=== PATIENT | female | born 1990 | race Caucasian/White ===

== ENCOUNTER 2024-06-03 09:39 | Outpatient (CLI) | payer OTHER, SELFPAY ==
[2024-06-03 10:06] LABS: Basophils % 0.6 % (0.1-2.0); Eosinophils # 0.1 K/mm3 (0.0-0.4); Eosinophils % 1.8 % (0.1-12.0); Hematocrit 41.1 % (37.0-47.0); Hemoglobin 13.1 g/dL (12.2-16.2); Lymphocytes # 1.8 K/mm3 (0.7-4.5); Lymphocytes % 24.1 % (10-50); Mean Corpuscular HGB Conc 31.9 g/dL (31.8-35.4); Mean Corpuscular Hemoglobin 31.4 pg (27.0-31.2); Mean Corpuscular Volume 98.3 fl (81-99); Mean Platelet Volume 8.2 fl (7.4-10.4); Monocytes # 0.4 K/mm3 (0.1-1.0); Monocytes % 5.2 % (1.7-9.3); Neutrophils # 5.2 K/mm3 (1.8-7.8); Neutrophils % 68.3 % (37.0-80.0); Platelet Count 321 K/mm3 (142-424); Red Blood Count 4.18 M/mm3 (4.20-5.40); Red Cell Distribution Width 13.4 % (11.5-17.5); White Blood Count 7.6 K/mm3 (4.8-10.8)
[2024-06-03 11:58] LABS: HCG,Quantitative 138860 mIU/ml (0-5.42)
[2024-06-04 09:21] LABS: HCV Ab Non Reactive (Non Reactive); Hepatitis B Surface Antigen Negative (Negative)
[2024-06-04 12:52] LABS: HIV (1&2) Antibody Rapid NONREACTIVE (NONREACTIVE)
[2024-06-04 13:08] LABS: Progesterone 15.8 ng/mL (.); Rubella Antibodies, IgG 1.33 index (Immune >0.99)
[2024-06-04 14:13] LABS: Rapid Plasma Reagin Ab Titer Non Reactive titer (NonRea<1:1)
== END 2024-06-03 23:59 | disposition home or self-care (01) ==
LOC: LAB 10:23
PROVIDERS: Visit Provider Obstetrics & Gynecology
DX: Z34.90 Encounter for supervision of normal pregnancy, unspecified, unspecified trimester (principal)
CPT/HCPCS: 86803; 86703; 36415; 84144; 84702; 85025; 86593; 86762; 86850; 86870; 87086; 87340

== ENCOUNTER 2024-06-12 10:05 | Outpatient (CLI) | payer OTHER, SELFPAY ==
--- NOTE | 2024-06-12 10:05 | US_ITS ---
PROCEDURE: US OB <= 14 WEEKS FETUS CLINICAL INDICATION: bleeding in early COMPARISON: No exams were available for comparison FINDINGS: Transvaginal sonographic images of the pelvis were obtained. From her last menstrual period she is 14weeks 6days. An intrauterine gestational sac is present with a pole with a crown-rump length of 3.2cm This correlates to a gestational age of 10weeks 1day. MAMTA will be 01/07/2025 heart tones are present with an FHR of 165bpm. Yolk sac is noted. The yolk sac measures 5.6 mmmm. THERE IS AN IUD WITHIN THE LOWER UTERINE SEGMENT. The right ovary is seen and appears normal. There are multiple small follicles within the right ovary. The left ovary is seen and appears normal. There appears to be a corpus luteum in the left ovary measuring 1.6 cm. There is no fluid in the cul-de-sac. IMPRESSION: 1. Viable fetus within the uterine cavity with heart rate activity. 2. The fetus measures 10 weeks 1 day, MAMTA will be 01/07/2025. 3. AN IUD IS PRESENT WITHIN THE LOWER SEGMENT OF THE UTERINE CAVITY. 4. Both ovaries have multiple small follicles. The left ovary appears to have a corpus luteum measuring 1.6 cm. 5. No fluid in the cul-de-sac. Dictated by: Zurdo Bills MD 06/13/2024 08:20 Zurdo Bills MD in OV 06/13/2024 08:20
== END 2024-06-12 23:59 | disposition home or self-care (01) ==
LOC: RAD 10:05
PROVIDERS: PCP Obstetrics & Gynecology; Visit Provider Obstetrics & Gynecology
DX: O20.9 Hemorrhage in early pregnancy, unspecified (principal); Z3A.14 14 weeks gestation of pregnancy
CPT/HCPCS: 76801